=== PATIENT | female | born 1965 | race Caucasian/White ===

== ENCOUNTER 2023-03-07 08:02 | Outpatient (CLI) | payer OTHER, SELFPAY ==
--- NOTE | ~2023-03-07 | MM_ITS ---
EXAMINATION: MM screening ramón BI w nasima HISTORY: Screening mammogram TECHNIQUE: Craniocaudal and mediolateral oblique 3-D tomosynthesis images were obtained and synthetic 2-D images were generated. CAD analysis was submitted and interpreted. COMPARISON: 01/21/2016 BREAST PARENCHYMAL COMPOSITION: There are scattered areas of fibroglandular density. FINDINGS: No suspicious mass, calcification, or architectural distortion are identified in either kuldip ast to suggest malignancy. There has been no suspicious interval change. IMPRESSION: 1. No mammographic evidence of malignancy. 2. Recommend routine screening mammography in one year. BI-RADS Category 1: Negative Reviewed, dictated and finalized at location A.
== END 2023-03-07 08:03 | disposition home or self-care (01) ==
LOC: ANHIMG 08:06
PROVIDERS: PCP Family Medicine; Visit Provider Nurse Practitioner Family
DX: Z12.31 Encounter for screening mammogram for malignant neoplasm of breast (principal)
CPT/HCPCS: 77063; 77067

== ENCOUNTER 2024-07-13 15:31 | Outpatient (CLI) | payer OTHER, SELFPAY ==
--- NOTE | ~2024-07-13 | MM_ITS ---
EXAMINATION: MM screening ramón BI w nas[facility] HISTORY: Screening mammogram TECHNIQUE: Craniocaudal and mediolateral oblique 3-D tomosynthesis images were obtained and synthetic 2-D images were generated. CAD analysis was submitted and interpreted. COMPARISON: 03/07/2023, 01/21/2016 BREAST PARENCHYMAL COMPOSITION:Not Dense. There are scattered areas of fibroglandular density. FINDINGS: No suspicious mass, calcification, or architectural distortion are identified in either kuldip ast to suggest malignancy. There has been no suspicious interval change. IMPRESSION: No mammographic evidence of malignancy. Recommend routine screening mammography in one year. BI-RADS Category 1: Negative Reviewed, dictated and finalized at location .
--- OUTSIDE RECORDS SUMMARY | 2024-07-13 15:36 | XMS_ITS | Clinical Summary ---
Author Organization [facility] Address [address] [place] [id number] Care Team Providers Care Hat Presser Name Role Phone None, Provider MD Primary Care Provider Unavaila ble Social History Tobacco Use Types Packs/Day Years Used Date Smoking Tobacco: Never Assessed Comments Unknown Sex and Gender Information Value Date Recorded Sex Assigned at Not on file Legal Sex Female 8:21 PM CDT Gender Identity Not on file Sexual Orientation Not on file Plan of Treatment Health Maintenance Due Date Last Done Comments Cervical Cancer Screening Pa p Smear (Age 30 to 64) Every 3 Years 1966 Colorectal Cancer Screening Colonoscopy (10 Years) 1966 Annual Physical 1969 Hepatitis C 1984 DTaP, Tdap and Td Vaccines ( 1 - Tdap) 1985 Hepatitis B Vaccines (1 of 3 - 19+ 3-dose series) 1985 Cervical Cancer Screening Pa p with HPV Testing (Age 30 to 64) Every 5 Years 1996 Cervical Cancer Screening wi th HPV 1996 Mammogram Screening 2006 Zoster Vaccines (1 of 2) 2016 COVID-19 Vaccine ( - 2023-2 5 season) 2024 09/29/2020, 09/01/2020 Influenza Adult (#1) 2024 Meningococcal B Vaccine Aged Out No l onger eligible based on patient's age to complete this topic Meningococcal Vaccine Aged Out No dena muriel eligible based on patient's age to complete this topic Pneumococcal Vaccine: Pediatrics (0 to 5 Years) and At-Risk Patients (6 to 64 Years) Aged Out No longer eligible b ased on patient's age to complete this topic RSV Immunizations Under 20 Months Aged Out No longer eligible b ased on patient's age to complete this topic Care Teams Hat Presser Relationship Specialty Start Date End Date None, Provider, PCP - General 02/25/20
--- OUTSIDE RECORDS SUMMARY | 2024-07-13 15:36 | XMS_ITS | Continuity of Care Document ---
Author Organization [facility] Address [id number] [place] [address] [place] [address] Phone Care Team Providers Care Machine Molder Name Role Phone Charlie Carter MD Unavailable Unavailable Advance Directives Directive Yes / No Effective Date File Name No Information Encounters Encounter Description Practice Location Reason(s) For Visit Diagnoses Date Provider Providers Copied on Encounter [facility], [address], [place], [place], [id number], [place] tel:[phone] [facility] No Information Mar-0 7-200 6 Emma Guerra. [address] [facility] [address], [place], [place], [id number], [place]. tel:[phone] Referring Provider: Bryant Noel MD, [address] [place], [address]. tel:[phone] Family History Family Member Type Diagnosis Age At Onset No Information Payers Payer name Insurance type Covered constitution party ID Authoriza tion(s) No Information Social History Type Description Quantity Date Captured Comments Sex Female Smoking Status No Information Chief Complaint And Reason For Visit No Information Reason For Referral Reason For Referral No Information History Of Present Illness Encounter Date Complaint History Of Prese nt Illness No Information Functional Status Date Functional Assessmen t No Information Instructions Date Instruction Additional Infor mation No Information Assessments Type Assessment Date No Information Patient Care Teams Name Effective Dates (start - stop) Status Members No Information
--- OUTSIDE RECORDS SUMMARY | 2024-07-13 15:36 | XMS_ITS | Clinical Summary ---
Author Organization [address] Address [address] [place] [id number] Care Team Providers Care [employer] Central Office Installer Name Role Phone Raúl Her MD Primary Care Provider [phone] Raghavendra Molina MD Unavailable [phone] Allergies No known active allergies Medications multivitamin with iron tablet Take 1 tablet by mouth once a week Active RED BEET ROOT-SOUR LEON EXT ORAL Take by mouth Active Active Problems Problem Noted Date Diagnosed Date Elevated blood pressure read ing without diagnosis of hypertension 09/12/2023 Class 3 severe obesity due t o excess calories without serious comorbidity with body mass index (BMI) of 40.0 to 44.9 in adult 03/23/2023 Assessment & Plan (03/14/2024 4:14 PM AIR CONDITIONING SUPERVISOR): BMI Follow-up includes: nutrition counseling, exercise counseling, and education provided. Assessment & Plan (09/12/2023 2:10 PM CDT): BMI Follow-up includes: nutrition counseling, exercise counseling, and education provided. Assessment & Plan (03/23/2023 12:54 PM AIR CONDITIONING SUPERVISOR): BMI Follow-up includes: nutrition counseling, exercise counseling, and education provided. Prediabetes 02/09/2023 Assessment & Plan (02/12/2023 1:48 PM CDT): Advocated to make lifestyle modifications such as: a low carbohydrate diet, daily routine exercise (at least 30 mins a day, 5 days a week of light to moderate cardio) and weight reduction. Establishing care with new doctor, encounter for 02/09/2023 Assessment & Plan (02/09/2023 9:51 AM CDT): A(n) initial visit to establish care has been performed today. Nicole Rivas is not up to date on screening tests. She is in need of Cholesterol screening- mammogram is scheduled for 03/07. She is not up to date on needed preventative vaccinations; She is in need of Tdap/Td and Zoster. We discussed healthy lifestyle habits, educational material has been given. Medications reviewed, changes documented as per the medical record and discussed with patient along with risks vs benefits. Return in 6 months Encounters Date Type Department Care Team Description 06/06/2024 10:17 AM AIR CONDITIONING SUPERVISOR - 06/06/2024 11:59 PM AIR CONDITIONING SUPERVISOR Hospital Encounter [address] [id number] Chronic bilateral low back pain with bilateral sciatica Discharge Disposition: Discharge to home or self care 05/08/2024 Telephone [facility] Primary Care at [address] [phone] Shahla Lomeli MA 05/04/2024 2:26 PM AIR CONDITIONING SUPERVISOR - 05/04/2024 11:59 PM AIR CONDITIONING SUPERVISOR Hospital Encounter [address] [id number] Prediabetes; Elevated blood pressure reading without diagnosis of hypertension; Class 3 severe obesity due to excess calories without serious comorbidity with body mass index (BMI) of 40.0 to 44.9 in adult (HCC) Discharge Disposition: Discharge to home or self care 05/04/2024 11:45 AM AIR CONDITIONING SUPERVISOR Lab [facility] Outpatient Lab at [address] [phone] Establishing care with new doctor, encounter for (Primary Dx); Prediabetes from Last 3 Months Immunizations Immunization Administration Dates Next Due Influenza, Unspecified 02/09/2023(Deferr ed: Patient Refused),08/04/2022(Deferred: Patient Refused),08/04/2021(Deferred: Patient Refused) Tdap 02/09/2023 Surgical History Surgery Date Site/Laterality Comments APPENDECTOMY 1975 Medical History Medical History Date Comments Frequent UTI Family History Medical History Relation Name Comments Diabetes Brother Manuel Diabetes Father Ed Colon cancer Maternal Grandmother Diabetes Mother Mary Hypertension Mother Mary Breast cancer Paternal Grandmother Marjorie Relation Name Status Comments Brother Manuel Father Ed Maternal Grandmother Mother Mary Paternal Grandmother Marjorie Social History Tobacco Use Types Packs/Day Years Used Date Smoking Tobacco: Never Passive Smoke Exposure: Never Smokeless Tobacco: Never Humiliation, Afraid, Rape, and Kick questionnair e Answer Date Recorded Within the last year, have y ou been afraid of your partner or ex-partner? No 01/26/2023 Emotionally Abused Not on file 01/26/2023 Within the last year, have y ou been kicked, hit, slapped, or otherwise physically hurt by your partner or ex-partner? No 01/26/2023 Within the last year, have y ou been raped or forced to have any kind of sexual activity by your partner or ex-partner? No 01/26/2023 AUDIT-C Answer Date Recorded Q1: How often do you have a drink containing alc ohol? Monthly or less 02/09/2023 Q2: How many drinks containi ng alcohol do you have on a typical day when you are drinking? 1 or 2 02/09/2023 Q3: How often do you have si x or more drinks on one occasion? Never 02/09/2023 PHQ-2 Answer Date Recorded PHQ-2 Total Score (If total score is 3 or more points, staff should administer the PHQ-9) 0 03/14/2024 Comments No Sex and Gender Information Value Date Recorded Sex Assigned at Not on file Legal Sex Female 8:33 PM AIR CONDITIONING SUPERVISOR Gender Identity Female 08/02/2022 8:04 PM CDT Sexual Orientation Not on file Obstetrics History Para Term AB IAB SAB Ectopic Multiple Livin g Live Births 3 2 Date Outcome GA Total Labor Labor/2nd/3rd Weight Sex Type Anes PTL Estrella A1 A5 Name Clin Para Vaginal Para Vaginal Last Filed Vital Signs Vital Sign Reading Time Taken Comments Blood Pressure 124/78 03/14/2024 3:52 PM AIR CONDITIONING SUPERVISOR Pulse 61 03/14/2024 3:52 PM AIR CONDITIONING SUPERVISOR Temperature 36.7 C (98.1 F) 03/14/2024 3:52 PM AIR CONDITIONING SUPERVISOR Respiratory Rate 22 12/05/2023 12:2 3 PM CDT Oxygen Saturation 98% 03/14/2024 3:52 PM AIR CONDITIONING SUPERVISOR Inhaled Oxygen Concentration - - Weight 109.5 kg (241 lb 4.8 oz) 03/14/2024 3:52 PM AIR CONDITIONING SUPERVISOR Height 162.6 cm (5' 4 ) 03/14/2024 3:52 PM AIR CONDITIONING SUPERVISOR Body Mass Index 41.42 03/14/2024 3:52 PM AIR CONDITIONING SUPERVISOR Plan of Treatment Health Maintenance Due Date Last Done Comments Hepatitis C Screening 1966 Hepatitis B Screening 1984 Covid-19 Vaccine ( season) 2024 09/29/2020, 09/01/2020 Breast Cancer Screening-Mammogram 03/07/2024 03/07/2023 Zoster Vaccine (1 of 2) 09/11/2024 Post poned from 2016 (Insurance / Financial) Cervical Cancer Screening 02/09/2025 02/10/2024 Regular Well Visit/Exam 18-64 02/09/2025 02/10/2024, 01/26/2023, 08/04/2022 Depression Screening 03/14/2025 03/14/2024, 02/10/2024, 09/12/2023, Additional history exists Colon Cancer Screening-Colonoscopy 03/07/2028 03/07/2018, 03/07/2018 DTaP/Tdap/Td Vaccine (2 - Td or Tdap) 02/09/2033 02/09/2023 Influenza Vaccine Discontinued Pneumococcal vaccine <65 Aged Out No longer eligible based on patient's age to complete this topic Procedures Procedure Name Priority Date/Time Associated Diagnosis Comments MRI LUMBAR SPINE WO CONTRAST Schedule Routine, Read Routine (OP Routine) 06/06/2024 11:06 AM AIR CONDITIONING SUPERVISOR Chronic bilateral low back pain with bilateral sciatica EGFR Routine 05/04/2024 11:45 AM AIR CONDITIONING SUPERVISOR Prediabetes Elevated blood pressure reading without diagnosis of hypertension DIFFERENTIAL AUTO Routine 05/04/2024 11: 45 AM AIR CONDITIONING SUPERVISOR Prediabetes Elevated blood pressure reading without diagnosis of hypertension HEMOGLOBIN A1C Routine 05/04/2024 11:45 AM AIR CONDITIONING SUPERVISOR Prediabetes VITAMIN D 25 HYDROXY Routine 05/04/2024 11:45 AM AIR CONDITIONING SUPERVISOR Class 3 severe obesity due to excess calories without serious comorbidity with body mass index (BMI) of 40.0 to 44.9 in adult ([facility]) THYROID FUNCTION CASCADE Routine 05/04/2024 11:45 AM AIR CONDITIONING SUPERVISOR Class 3 severe obesity due to excess calories without serious comorbidity with body mass index (BMI) of 40.0 to 44.9 in adult ([facility]) Elevated blood pressure reading without diagnosis of hypertension LIPID PANEL Routine 05/04/2024 11:45 AM AIR CONDITIONING SUPERVISOR Class 3 severe obesity due to excess calories without serious comorbidity with body mass index (BMI) of 40.0 to 44.9 in adult ([facility]) COMPREHENSIVE METABOLIC PANEL Routine 05/04/2024 11:45 AM AIR CONDITIONING SUPERVISOR Prediabetes Elevated blood pressure reading without diagnosis of hypertension CBC WITH AUTO DIFFERENTIAL Routine 05/04/2024 11:45 AM AIR CONDITIONING SUPERVISOR Prediabetes Elevated blood pressure reading without diagnosis of hypertension PAP AND HPV, REFLEX TO HPV GENOTYPES Routine 02/10/2024 8:48 AM CDT Well woman exam MAMMOGRAPHY Routine 03/07/2023 COLONOSCOPY Routine 03/07/2018 from Last 3 Months or Most Recently Relevant to Health Maintenance Results * MRI Lumbar Spine WO Contrast (06/06/2024 11:06 AM AIR CONDITIONING SUPERVISOR) Anatomical Region Laterality Modality Spine N/A Magnetic Resonan ce 06/06/2024 11:1 7 AM AIR CONDITIONING SUPERVISOR Narrative 06/06/2024 11:22 AM AIR CONDITIONING SUPERVISOR EXAM DESCRIPTION: MRI LUMBAR SPINE WO CONTRAST REASON FOR STUDY: Chronic nontraumatic right leg pain and tightness with intermittent numbness for years. No provided lumbar spine/back complaints. No provided history of inciting and/or aggravating events. No provided past medical history. No lumbar spine surgery. TECHNIQUE: Sagittal and axial imaging of the lumbar spine includes T1, T2, STIR sequences. Images saved to PACS. COMPARISON: Lumbar spine radiograph 11/01/2023. FINDINGS: SEGMENTATION: No lumbosacral transitional anatomy. The lowest fully formed intervertebral disc level is labeled L5-S1. ALIGNMENT: Minimal retrolisthesis L3 on L4 in advance of grade 1 anterolisthesis L4 on L5. VERTEBRAE: No MR evidence of acute-subacute fracture. Vertebral body heights maintained. Spondylosis. Scattered tiny hemangiomas and/or patchy fatty marrow replacement about the osseous architecture. DISC HEIGHT: Multilevel variable intervertebral disc desiccation and loss of intervertebral disc height of the lower thoracic through lumbar spine. HARDWARE: None in the lumbar spine. CORD/CAUDA: Normal in size and signal intensity with conus medullaris termination at L1-2. LOWER THORACIC: Incompletely imaged. No stenosis demonstrated. INDIVIDUAL DISC LEVELS: L1-2: No diffuse disc bulge or focal herniation. No spinal canal stenosis. No neural foraminal stenosis. L2-3: Minimal annular disc bulge. Bilateral hypertrophic facet arthropathy. No spinal canal stenosis. No neural foraminal stenosis. L3-4: Slightly overhanging posterior cortical margin with annular disc bulge. Bilateral hypertrophic facet arthropathy, noting fluid in the facet joints suggestive of facet synovitis. Compromise of the bilateral lateral recesses, noting combination of disc and arthropathic facet variable slight contact with descending bilateral L4 nerve roots. No spinal canal stenosis. Mild bilateral neural foraminal stenosis, noting variable slight disc contact with exiting bilateral L3 nerve roots. L4-5: Slight uncovering of the intervertebral disc with annular disc bulge. Marked bilateral hypertrophic facet arthropathy, noting fluid in the facet joints suggestive of facet synovitis. Ligamentum flavum thickening. Compromise of the [id number]-[id number]-gpav-right lateral recesses, noting combination of disc and arthropathic facet variable contact with the descending bilateral L5 nerve roots. Mild-moderate spinal canal stenosis. Severe left and moderate right neural foraminal stenosis, noting combination of inferior pedicular surface, disc, and arthropathic facet variable contact with exiting bilateral L4 nerve roots. L5-S1: Posterior predominant annular disc bulge. Bilateral hypertrophic facet arthropathy. No spinal canal stenosis. Mild bilateral neural foraminal stenosis, noting combination of inferior pedicular surface and posterior cortical margin/disc variable contact with exiting bilateral L5 nerve roots. SACRUM: Visualized upper sacrum intact. VISUALIZED UPPER ABDOMEN: No significant abnormality. OTHER: No other significant findings. IMPRESSION: Constellation of spondylolisthesis, spondylosis, and degenerative disc disease of the lumbar spine as detailed level by level above, maximal at L4-5. THIS IS AN ELECTRONICALLY VERIFIED FINAL REPORT 06/06/2024 11:22 AM - Electronically signed by Roel Rodas M.D. PARIS: PARIS Report ID: [id number] Reading Location: [place] [address] Procedure Note Roel Rodas MD - 06/06/2024 EXAM DESCRIPTION: MRI LUMBAR SPINE WO CONTRAST REASON FOR STUDY: Chronic nontraumatic right leg pain and tightness with intermittent numbness for years. No provided lumbar spine/backcomplaints. No provided history of inciting and/or aggravating events. No providedpast medical history. No lumbar spine surgery. TECHNIQUE: Sagittal and axial imaging of the lumbar spine includes T1,T2, STIR sequences. Images saved to PACS. COMPARISON: Lumbar spine radiograph 11/01/2023. FINDINGS: SEGMENTATION: No lumbosacral transitional anatomy. The lowest fullyformed intervertebral disc level is labeled L5-S1. ALIGNMENT: Minimal retrolisthesis L3 on L4 in advance of grade 1 anterolisthesis L4 on L5. VERTEBRAE: No MR evidence of acute-subacute fracture. Vertebral body heights maintained. Spondylosis. Scattered tiny hemangiomas and/orpatchy fatty marrow replacement about the osseous architecture. DISC HEIGHT: Multilevel variable intervertebral disc desiccation andloss of intervertebral disc height of the lower thoracic through lumbar spine. HARDWARE: None in the lumbar spine. CORD/CAUDA: Normal in size and signal intensity with conus medullaris termination at L1-2. LOWER THORACIC: Incompletely imaged. No stenosis demonstrated. INDIVIDUAL DISC LEVELS: L1-2: No diffuse disc bulge or focal herniation. No spinal canalstenosis. No neural foraminal stenosis. L2-3: Minimal annular disc bulge. Bilateral hypertrophic facetarthropathy. No spinal canal stenosis. No neural foraminal stenosis. L3-4: Slightly overhanging posterior cortical margin with annular disc bulge. Bilateral hypertrophic facet arthropathy, noting fluid in thefacet joints suggestive of facet synovitis. Compromise of the bilateral lateral recesses, noting combination of disc and arthropathic facet variableslight contact with descending bilateral L4 nerve roots. No spinal canalstenosis. Mild bilateral neural foraminal stenosis, noting variable slight disccontact with exiting bilateral L3 nerve roots. L4-5: Slight uncovering of the intervertebral disc with annular discbulge. Marked bilateral hypertrophic facet arthropathy, noting fluid in the facet joints suggestive of facet synovitis. Ligamentum flavum thickening. Compromise of the rdqp-qymsmyc-oxev-right lateral recesses, notingcombination of disc and arthropathic facet variable contact with the descendingbilateral L5 nerve roots. Mild-moderate spinal canal stenosis. Severe left and moderate right neural foraminal stenosis, noting combination of inferior pedicular surface, disc, and arthropathic facet variable contact withexiting bilateral L4 nerve roots. L5-S1: Posterior predominant annular disc bulge. Bilateral hypertrophic facet arthropathy. No spinal canal stenosis. Mild bilateral neuralforaminal stenosis, noting combination of inferior pedicular surface and posterior cortical margin/disc variable contact with exiting bilateral L5 nerveroots. SACRUM: Visualized upper sacrum intact. VISUALIZED UPPER ABDOMEN: No significant abnormality. OTHER: No other significant findings. IMPRESSION: Constellation of spondylolisthesis, spondylosis, and degenerative disc disease of the lumbar spine as detailed level by level above, maximal atL4-5. THIS IS AN ELECTRONICALLY VERIFIED FINAL REPORT 06/06/2024 11:22 AM - Electronically signed by Roel Rodas M.D. PARIS: PARIS Report ID: [id number] Reading Location: [place] [address] us Raúl Her MD IMG MRI PROCEDURES Final Re sult * eGFR (05/04/2024 11:45 AM AIR CONDITIONING SUPERVISOR) eGFR 83 >=60 mL/min/1. 73 m2 Comment: Interpretive Data Reference Interval Normal >/= 90 mL/min/1.73m2 Mildly decreased* 60 - 89 mL/min/1.73m2 Mildly to moderately decreased 45 - 59 mL/min/1.73m2 Moderately to severely decreased 30 - 44 mL/min/1.73m2 Severely decreased 15 - 29 mL/min/1.73m2 Kidney Failure < 15 mL/min/1.73m2 *Relative to young adult level Estimated glomerular filtration rate is determined by the 2020 CKD-EPI equation recommended by the National Kidney Foundation (A Unifying Approach to GFR Estimation: Recommendations of the NKF-ASK Task Force on Reassessing the Inclusion of Race in Diagnosing Kidney Disease, JASN 2020). The CKD-EPI equation should not be used for patients with unstable renal function and has not been validated in children and those over 70. Current interpretive data was last reviewed 2021. Blood 05/04/2024 11:4 5 AM AIR CONDITIONING SUPERVISOR 05/04/2024 7:29 PM AIR CONDITIONING SUPERVISOR us Raúl Her MD LAB BLOOD ORDERABLES Final Result [facility] [id number] [place] [address] * Differential, auto (05/04/2024 11:45 AM AIR CONDITIONING SUPERVISOR) Neutrophil abs 4.9 1.5 - 6.5 K/cumm Imm gran abs 0.0 0.0 - 0.1 K/cumm [facility] Lymphocyte abs 1.8 0.8 - 3.3 K/cumm [facility] Monocyte abs 0.4 0.2 - 0.8 K/cumm [facility] Eosinophil abs 0.3 0.0 - 0.5 K/cumm [facility] Basophil abs 0.0 0.0 - 0.1 K/cumm [facility] Neutrophil pct 66.2 % [facility] Comment: Interpretive Data Percent cell count reference ranges are not reported, since discordance with absolute values may lead to misinterpretation of CBC data. Current Interpretive Data was last revised on 2017. Imm gran pct 0.3 % [facility] Comment: Interpretive Data Percent cell count reference ranges are not reported, since discordance with absolute values may lead to misinterpretation of CBC data. Current Interpretive Data was last revised on 2017. Lymphocyte pct 23.8 % [facility] Comment: Interpretive Data Percent cell count reference ranges are not reported, since discordance with absolute values may lead to misinterpretation of CBC data. Current Interpretive Data was last revised on 2017. Monocyte pct 5.3 % [facility] Comment: Interpretive Data Percent cell count reference ranges are not reported, since discordance with absolute values may lead to misinterpretation of CBC data. Current Interpretive Data was last revised on 2017. Eosinophil pct 4.1 % [facility] Comment: Interpretive Data Percent cell count reference ranges are not reported, since discordance with absolute values may lead to misinterpretation of CBC data. Current Interpretive Data was last revised on 2017. Basophil pct 0.3 % [facility] Comment: Interpretive Data Percent cell count reference ranges are not reported, since discordance with absolute values may lead to misinterpretation of CBC data. Current Interpretive Data was last revised on 2017. Blood 05/04/2024 11:4 5 AM AIR CONDITIONING SUPERVISOR 05/04/2024 6:56 PM AIR CONDITIONING SUPERVISOR Raúl Her MD LAB BLOOD ORDERABLES Final Result Performing Organization Address [facility] Co de Phone Number NELSY [phone] [place] [address] * Thyroid Function [place] (05/04/2024 11:45 AM AIR CONDITIONING SUPERVISOR) Pathologist [facility] [place] TSH 2.47 0.30 - 4.20 mcIUnit/mL Blood 05/04/2024 11:4 5 AM AIR CONDITIONING SUPERVISOR 05/04/2024 6:56 PM AIR CONDITIONING SUPERVISOR Raúl Her MD LAB BLOOD ORDERABLES Final Result Performing Organization Address [facility] Co de Phone Number NELSY [phone] [place] [address] * (ABNORMAL) CBC with auto differential (05/04/2024 11:45 AM AIR CONDITIONING SUPERVISOR) Pathologist [facility] [place] WBC 7.4 3.8 - 9.9 K/cumm Hgb 12.9 11.9 - 15.5 g/dL [facility] Hct 42.3 35.6 - 45.5 % [facility] Plt 257 150 - 400 K/cumm [facility] MPV 11.8 9.1 - 12.3 fL [facility] RBC 4.65 3.90 - 5.20 M/cumm [facility] MCV 91.0 81.3 - 96.4 fL [facility] MCH 27.7 27.1 - 33.3 pg [facility] MCHC 30.5(L) 32.3 - 35.7 g/dL [facility] RDW CV 14.2 11.1 - 14.9 % [facility] RDW SD 47.2 35.7 - 48.1 fL [facility] NRBC abs 0.00 0.00 - 0.01 K/cumm [facility] Blood 05/04/2024 11:4 5 AM AIR CONDITIONING SUPERVISOR 05/04/2024 6:56 PM AIR CONDITIONING SUPERVISOR Raúl Her MD LAB BLOOD ORDERABLES Final Result Performing Organization Address [facility] Co de Phone Number [facility] [id number] [address] [facility] [place] [address] * Vitamin D 25 hydroxy (05/04/2024 11:45 AM AIR CONDITIONING SUPERVISOR) Vitamin D 25-OH 31 30 - 80 ng/mL Blood 05/04/2024 11:4 5 AM AIR CONDITIONING SUPERVISOR 05/04/2024 6:56 PM AIR CONDITIONING SUPERVISOR Raúl Her MD LAB BLOOD ORDERABLES Final Result Performing Organization Address [facility] de Phone Number [facility] [id number] [place] [address] * (ABNORMAL) Hemoglobin A1c (05/04/2024 11:45 AM AIR CONDITIONING SUPERVISOR) Hgb A1C 5.7(H) 4.0 - 5.6 % Estimated Average Glucose 117 mg/dL [facility] Comment: The ADA recommends reporting an estimated Average Glucose (eAG) with all Hemoglobin A1c results using the equation derived from a study of 507 normal and diabetic adults. Minority populations were underrepresented and children were not included. (Diabetes Care 31:6897-0363, 2008). The eAG is not equivalent to a fasting glucose. Blood 05/04/2024 11:4 5 AM AIR CONDITIONING SUPERVISOR 05/04/2024 6:56 PM AIR CONDITIONING SUPERVISOR us Raúl Her MD LAB BLOOD ORDERABLES Final Result [facility] [address] [address] [place] [address] * Lipid panel (05/04/2024 11:45 AM AIR CONDITIONING SUPERVISOR) Cholesterol 158 30 - 199 mg/dL Comment: Interpretive Data Ages < or = 19 years Acceptable: <170 mg/dL Borderline high: 170-199 mg/dL High: >or= 200 mg/dL Ages > or = 20 years Desirable: <200 mg/dL Borderline high: 200-239 mg/dL High: >or= 240 mg/dL Literature References: 1. Expert Panel on Integrated Guidelines for Cardiovascular Health and Risk Reduction in Children and Adolescents. Pediatrics 2011;128:S213 2. NCEP Expert Panel. Circulation 2004;110:227 Current Interpretive Data was last revised on 2017. Triglycerides 64 <=149 mg/dL [facility] Comment: Interpretive Data Ages < or = 9 years Acceptable: <75 mg/dL Borderline high: 75-99 mg/dL High: >or= 100 mg/dL Ages 10 to 20 years Acceptable: <90 mg/dL Borderline high: 90-129 mg/dL High: >or= 130 mg/dL Ages > or = 20 years Desirable: <150 mg/dL Borderline high: 150-199 mg/dL High: 200-499 mg/dL Very high: >or= 499 mg/dL Literature References: 1. Expert Panel on Integrated Guidelines for Cardiovascular Health and Risk Reduction in Children and Adolescents. Pediatrics 2011;128:S213 2. NCEP Expert Panel. Circulation 2004;110:227 Current Interpretive Data was last revised on 2017. HDL 67 >=40 mg/dL [facility] Comment: Interpretive Data Ages < or = 19 years Acceptable: >45 mg/dL Borderline low: 40-45 mg/dL Low: <40 mg/dL Ages > or = 20 years Desirable: >or= 60 mg/dL Low: <40 mg/dL Literature References: 1. Expert Panel on Integrated Guidelines for Cardiovascular Health and Risk Reduction in Children and Adolescents. Pediatrics 2011;128:S213 2. NCEP Expert Panel. Circulation 2004;110:227 Current Interpretive Data was last revised on 2017. LDL, calculated 78 <=129 mg/dL [facility] Comment: Interpretive Data Ages < or = 19 years Acceptable: <110 mg/dL Borderline high: 110-129 mg/dL High: >or= 130 mg/dL Ages > or = 20 years Optimal: <100 mg/dL Near optimal: 100-129 mg/dL Borderline high: 130-159 mg/dL High: >160 mg/dL Calculated using the Rafael LDL-C estimating equation. This equation was implemented on 2023. Prior to this date LDL-C was estimated using the Friedewald equation. Literature References: 1. Expert Panel on Integrated Guidelines for Cardiovascular Health and Risk Reduction in Children and Adolescents. Pediatrics 2011;128:S213 2. NCEP Expert Panel. Circulation 2004;110:227 3. Rafael Suero et al. CLARA Cardiol. 2020 September 06;5(5):540-548. doi: 10.1001/[email or web address].2020.0013 Current Interpretive Data was last revised on 2023. Non-HDL Cholesterol 91 mg/dL NELSY SAINI Comment: Interpretive Data Ages < or = 19 years Acceptable: <120 mg/dL Borderline high: 120-144 mg/dL High: >145 mg/dL Ages > or = 20 years When triglycerides are >200 mg/dL, Non-HDL cholesterol is a secondary target of therapy with treatment goals that are 30 mg/dL greater than the LDL cholesterol target. Literature References: 1. Expert Panel on Integrated Guidelines for Cardiovascular Health and Risk Reduction in Children and Adolescents. Pediatrics 2011;128:S213 2. NCEP Expert Panel. Circulation 2004;110:227 Current Interpretive Data was last revised on 2017. Chol/HDL ratio 2 NELSY SAINI Blood 05/04/2024 11:4 5 AM AIR CONDITIONING SUPERVISOR 05/04/2024 6:56 PM AIR CONDITIONING SUPERVISOR us Raúl Her MD LAB BLOOD ORDERABLES Final Result NELSY SAINI [address] [place] [address] * Comprehensive metabolic panel (05/04/2024 11:45 AM AIR CONDITIONING SUPERVISOR) Sodium 141 135 - 145 mmol/L Potassium, pl 4.8 3.3 - 4.9 mmol/L [facility] Chloride 106 97 - 110 mmol/L [facility] CO2 25 22 - 32 mmol/L [facility] Anion gap 10 2 - 15 mmol/L [facility] BUN 17 6 - 25 mg/dL [facility] Creatinine 0.82 0.60 - 1.10 mg/dL [facility] Glucose 93 70 - 199 mg/dL [facility] Comment: Interpretive Data Fasting glucose >/= 126 mg/dl is diagnostic for diabetes. Fasting is defined as no caloric intake for at least 8 hours. Fasting glucose between 100 mg/dl to 125 mg/dl is diagnostic of prediabetes. In a patient with classic symptoms of hyperglycemia or hyperglycemic crisis, a random glucose >/= 200 mg/dl is diagnostic for diabetes. In the absence of unequivocal hyperglycemia, results should be confirmed by repeat testing. The classification and Diagnosis of Diabetes Diabetes Care 2021; 46: S19-S40. Current interpretive data was last revised 2022. Calcium 9.7 8.5 - 10.3 mg/dL [facility] Bilirubin, total 0.3 0.1 - 1.2 mg/dL [facility] Protein, pl 7.6 6.5 - 8.5 g/dL [facility] Albumin 4.2 3.5 - 5.0 g/dL [facility] Alk phos 83 40 - 130 Units/L [facility] ALT 27 7 - 45 Units/L [facility] AST 23 10 - 45 Units/L [facility] Blood 05/04/2024 11:4 5 AM AIR CONDITIONING SUPERVISOR 05/04/2024 6:56 PM AIR CONDITIONING SUPERVISOR Raúl Her MD LAB BLOOD ORDERABLES Final Result NELSY SAINI [address] [place] [address] * Pap and HPV, reflex to HPV Genotypes (02/10/2024 8:48 AM CDT) CLINICAL INFORMATION: [facility] Comment:SCREENING LMP [facility] Comment:UNKNOWN Previous Pap [facility] Comment:NONE GIVEN Prev. Bx [facility] Comment:NONE GIVEN SOURCE: [facility] Comment:Cervix, Endocervix Pap, specimen adequacy [facility] Comment:SATISFACTORY FOR ZAINAB LUATION HPV interp [facility] Comment: Cytology Results: Negative for intraepithelial lesion or malignancy. Atrophic pattern; predominantly parabasal cells COMMENTS [facility] Comment: This Pap test has been evaluated with computer assisted technology. [facility] Comment: KMS, CT(ASCP) CT Screening location: [place] [address] [address] [address] Comment [facility] Comment: EXPLANATORY NOTE: The Pap is a screening test for cervical cancer. It is not a diagnostic test and is subject to false negative and false positive results. It is most reliable when a satisfactory sample, regularly obtained, is submitted with relevant clinical findings and history, and when the Pap result is evaluated along with historic and current clinical information. Human papillomavirus DNA, High Risk E6/E7 Not Detected NOT DETECTED [facility] Comment: Not Detected High Risk HPV types (16,18,31,33,35,39,45,51,52, 56,58,59,66,68) were not detected. Other HPV types which cause anogenital lesions may be present. The significance of the other types of HPV in malignant processes has not been established. Methodology: Real Time PCR Thin prep-Endocervica l 02/10/2024 8:48 AM CDT 02/11/2024 2:17 AM CDT us Marielena Barone CAMPGROUND ATTENDANT LAB CYTOLOGY ORDERABLES Fin al Result [place] [address] [address] [place] [address] [place] [address] [place] [address] * HM MAMMOGRAPHY (03/07/2023) us Historical Provider HEALTH MAINTENANCE Final Result * HM COLONOSCOPY (03/07/2018) us Historical Provider HEALTH MAINTENANCE Final Result from Last 3 Months or Most Recently Relevant to Health Maintenance Insurance [facility] CHOICE PLUS [facility] Care Teams Fiber [employer] Central Office Installer Relationship Specialty Start Date End Date Raúl Her MD [address] [facility] [address] [place] [address] PCP - General Family Medicine 08/04/22 Raghavendra Molina MD [address] [place] [address] Referring Physician Gastroenterology 02/12/23
--- OUTSIDE RECORDS SUMMARY | 2024-07-13 15:36 | XMS_ITS | Referral Summary ---
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 Name Role Phone Arden, Raúl Sevilla MD Primary Care Provider [phone] Raghavendra Molina MD Unavailable [phone] Encounters Date Type Department Care Team Description 06/06/2024 10:17 AM GAMEWELL OPERATOR - 06/06/2024 11:59 PM GAMEWELL OPERATOR Hospital Encounter [address] [address] Chronic bilateral low back pain with bilateral sciatica Discharge Disposition: Discharge to home or self care 05/08/2024 Telephone [facility] Primary Care at [address] [address] Shahla Lomeli MA 05/04/2024 2:26 PM GAMEWELL OPERATOR - 05/04/2024 11:59 PM GAMEWELL OPERATOR Hospital Encounter [address] [address] Prediabetes; Elevated blood pressure reading without diagnosis of hypertension; Class 3 severe obesity due to excess calories without serious comorbidity with body mass index (BMI) of 40.0 to 44.9 in adult (HCC) Discharge Disposition: Discharge to home or self care 05/04/2024 11:45 AM GAMEWELL OPERATOR Lab [facility] Outpatient Lab at [address] [address] Establishing care with new doctor, encounter for (Primary Dx); Prediabetes from Last 3 Months Allergies No known active allergies Medications multivitamin [...] 03/23/2023 Assessment & Plan (03/14/2024 4:14 PM GAMEWELL OPERATOR): BMI Follow-up includes: nutrition counseling, exercise counseling, and education provided. Assessment & Plan (09/12/2023 2:10 PM CDT): BMI Follow-up includes: nutrition counseling, exercise counseling, and education provided. Assessment & Plan (03/23/2023 12:54 PM GAMEWELL OPERATOR): BMI Follow-up includes: nutrition counseling, exercise counseling, [...] risks vs benefits. Return in 6 months Immunizations Immunization Administration Dates Next Due Influenza, Unspecified 02/09/2023(Deferr ed: Patient Refused),08/04/2022(Deferred: Patient Refused),08/04/2021(Deferred: Patient Refused) Tdap 02/09/2023 Social History Tobacco Use Types Packs/Day Years [...] on file Legal Sex Female 8:33 PM GAMEWELL OPERATOR Gender Identity Female 08/02/2022 8:04 PM CDT Sexual Orientation Not on file Last Filed Vital Signs Vital Sign Reading Time Taken Comments Blood Pressure 124/78 03/14/2024 3:52 PM GAMEWELL OPERATOR Pulse 61 03/14/2024 3:52 PM GAMEWELL OPERATOR Temperature 36.7 C (98.1 F) 03/14/2024 3:52 PM GAMEWELL OPERATOR Respiratory Rate 22 12/05/2023 12:2 3 PM CDT Oxygen Saturation 98% 03/14/2024 3:52 PM GAMEWELL OPERATOR Inhaled Oxygen Concentration - - Weight 109.5 kg (241 lb 4.8 oz) 03/14/2024 3:52 PM GAMEWELL OPERATOR Height 162.6 cm (5' 4 ) 03/14/2024 3:52 PM GAMEWELL OPERATOR Body Mass Index 41.42 03/14/2024 3:52 PM GAMEWELL OPERATOR Plan of Treatment Not on file Procedures Procedure Name Priority Date/Time Associated Diagnosis Comments MRI LUMBAR SPINE WO CONTRAST Schedule Routine, Read Routine (OP Routine) 06/06/2024 11:06 AM GAMEWELL OPERATOR Chronic bilateral low back pain with bilateral sciatica EGFR Routine 05/04/2024 11:45 AM GAMEWELL OPERATOR Prediabetes Elevated blood pressure reading without diagnosis of hypertension DIFFERENTIAL AUTO Routine 05/04/2024 11: 45 AM GAMEWELL OPERATOR Prediabetes Elevated blood pressure reading without diagnosis of hypertension HEMOGLOBIN A1C Routine 05/04/2024 11:45 AM GAMEWELL OPERATOR Prediabetes VITAMIN D 25 HYDROXY Routine 05/04/2024 11:45 AM GAMEWELL OPERATOR Class 3 severe obesity due to excess calories without serious comorbidity with body mass index (BMI) of 40.0 to 44.9 in adult (HCC) THYROID FUNCTION CASCADE Routine 05/04/2024 11:45 AM GAMEWELL OPERATOR Class 3 severe obesity due to excess calories without serious comorbidity with body mass index (BMI) of 40.0 to 44.9 in adult (HCC) Elevated blood pressure reading without diagnosis of hypertension LIPID PANEL Routine 05/04/2024 11:45 AM GAMEWELL OPERATOR Class 3 severe obesity due to excess calories without serious comorbidity with body mass index (BMI) of 40.0 to 44.9 in adult (HCC) COMPREHENSIVE METABOLIC PANEL Routine 05/04/2024 11:45 AM GAMEWELL OPERATOR Prediabetes Elevated blood pressure reading without diagnosis of hypertension CBC WITH AUTO DIFFERENTIAL Routine 05/04/2024 11:45 AM GAMEWELL OPERATOR Prediabetes Elevated blood pressure reading without diagnosis of hypertension PAP AND HPV, REFLEX TO HPV GENOTYPES Routine 02/10/2024 8:48 AM CDT Well woman exam HM MAMMOGRAPHY Routine 03/07/2023 HM COLONOSCOPY Routine 03/07/2018 from Last 3 Months or Most Recently Relevant to Health Maintenance Results * MRI Lumbar Spine WO Contrast (06/06/2024 11:06 AM GAMEWELL OPERATOR) Anatomical Region Laterality Modality Spine N/A Magnetic Resonan ce 06/06/2024 11:1 7 AM GAMEWELL OPERATOR Narrative 06/06/2024 11:22 AM GAMEWELL OPERATOR EXAM DESCRIPTION: MRI LUMBAR SPINE WO CONTRAST [...] synovitis. Ligamentum flavum thickening. Compromise of the [id number]-[id number]-right lateral recesses, noting combination of disc and [...] Roel Rodas M.D. PAR[place]: PARIS Report ID: [id number] Reading Location: [place] [address] Procedure Note Roel Rodas MD - 06/06/2024 [...] synovitis. Ligamentum flavum thickening. Compromise of the srkx-[id number]-right lateral recesses, notingcombination of disc and arthropathic [...] Roel Rodas M.D. [place]: [place]IS Report ID: [id number] Reading Location: [place] [address] us Raúl Her MD IMG MRI PROCEDURES Final Re sult * eGFR (05/04/2024 11:45 AM GAMEWELL OPERATOR) eGFR 83 >=60 mL/min/1. 73 m2 Comment: [...] reviewed 2021. Blood 05/04/2024 11:4 5 AM GAMEWELL OPERATOR 05/04/2024 7:29 PM GAMEWELL OPERATOR Raúl Her MD LAB BLOOD ORDERABLES Final Result NELSY [address] Department [place] [address] * Differential, auto (05/04/2024 11:45 AM GAMEWELL OPERATOR) Neutrophil abs 4.9 1.5 - 6.5 K/cumm Imm gran abs 0.0 0.0 - 0.1 K/cumm [facility] Lymphocyte abs 1.8 0.8 - 3.3 K/cumm [facility] Monocyte abs 0.4 0.2 - 0.8 K/cumm [facility] Eosinophil abs 0.3 0.0 - 0.5 K/cumm [facility] Basophil abs 0.0 0.0 - 0.1 K/cumm [facility] Neutrophil pct 66.2 % [facility] Comment: Interpretive Data Percent cell count reference ranges are not reported, since discordance with absolute values may lead to misinterpretation of CBC data. Current Interpretive Data was last revised on 2017. Imm gran pct 0.3 % [facility] Comment: Interpretive Data Percent cell count reference ranges are not reported, since discordance with absolute values may lead to misinterpretation of CBC data. Current Interpretive Data was last revised on 2017. Lymphocyte pct 23.8 % [facility] Comment: Interpretive Data Percent cell count reference ranges are not reported, since discordance with absolute values may lead to misinterpretation of CBC data. Current Interpretive Data was last revised on 2017. Monocyte pct 5.3 % [facility] Comment: Interpretive Data Percent cell count reference ranges are not reported, since discordance with absolute values may lead to misinterpretation of CBC data. Current Interpretive Data was last revised on 2017. Eosinophil pct 4.1 % [facility] Comment: Interpretive Data Percent cell count reference ranges are not reported, since discordance with absolute values may lead to misinterpretation of CBC data. Current Interpretive Data was last revised on 2017. Basophil pct 0.3 % [facility] Comment: Interpretive Data Percent cell count reference ranges are not reported, since discordance with absolute values may lead to misinterpretation of CBC data. Current Interpretive Data was last revised on 2017. Blood 05/04/2024 11:4 5 AM GAMEWELL OPERATOR 05/04/2024 6:56 PM GAMEWELL OPERATOR Raúl Her MD LAB BLOOD ORDERABLES Final Result Performing Organization Address [facility] Co de Phone Number [facility] [address] Department [place] [address] * Thyroid Function Alvarado (05/04/2024 11:45 AM GAMEWELL OPERATOR) TSH 2.47 0.30 - 4.20 mcIUnit/mL Blood 05/04/2024 11:4 5 AM GAMEWELL OPERATOR 05/04/2024 6:56 PM GAMEWELL OPERATOR Raúl Her MD LAB BLOOD ORDERABLES Final Result Performing Organization Address [facility] Co de Phone Number NELSY SAINI [address] [place] [place] [address] * (ABNORMAL) CBC with auto differential (05/04/2024 11:45 AM GAMEWELL OPERATOR) Pathologist [facility] WBC 7.4 3.8 - 9.9 K/cumm Hgb 12.9 11.9 - 15.5 g/dL [facility] Hct 42.3 35.6 - 45.5 % [facility] Plt 257 150 - 400 K/cumm [facility] MPV 11.8 9.1 - 12.3 fL [facility] RBC 4.65 3.90 - 5.20 M/cumm [facility] MCV 91.0 81.3 - 96.4 fL [facility] MCH 27.7 27.1 - 33.3 pg [facility] MCHC 30.5(L) 32.3 - 35.7 g/dL [facility] RDW CV 14.2 11.1 - 14.9 % [facility] RDW SD 47.2 35.7 - 48.1 fL [facility] NRBC abs 0.00 0.00 - 0.01 K/cumm [facility] Blood 05/04/2024 11:4 5 AM GAMEWELL OPERATOR 05/04/2024 6:56 PM GAMEWELL OPERATOR Raúl Her MD LAB BLOOD ORDERABLES Final Result Performing Organization Address [facility] Co de Phone Number NELSY SAINI [address] [place] [address] * Vitamin D 25 hydroxy (05/04/2024 11:45 AM GAMEWELL OPERATOR) [facility] Vitamin D 25-OH 31 30 - 80 ng/mL Blood 05/04/2024 11:4 5 AM GAMEWELL OPERATOR 05/04/2024 6:56 PM GAMEWELL OPERATOR Raúl Her MD LAB BLOOD ORDERABLES Final Result Performing Organization Address City/[facility]/ZIP Co de Phone Number NELSY SAINI [address] of [employer] [place], [place] [id number] * (ABNORMAL) Hemoglobin A1c (05/04/2024 11:45 AM GAMEWELL OPERATOR) Hgb A1C 5.7(H) 4.0 - 5.6 % Estimated Average Glucose 117 mg/dL NELSY SAINI Comment: The ADA recommends reporting an estimated Average Glucose (eAG) with all Hemoglobin A1c results using the equation derived from a study of 507 normal and diabetic adults. Minority populations were underrepresented and children were not included. (Diabetes Care 31:4883-3453, 2008). The eAG is not equivalent to a fasting glucose. Blood 05/04/2024 11:4 5 AM GAMEWELL OPERATOR 05/04/2024 6:56 PM GAMEWELL OPERATOR us Raúl Her MD LAB BLOOD ORDERABLES Final Result NLESY [address] [place] [address] * Lipid panel (05/04/2024 11:45 AM GAMEWELL OPERATOR) Cholesterol 158 30 - 199 mg/dL Comment: [...] last revised on 2017. Chol/HDL ratio 2 [facility] Blood 05/04/2024 11:4 5 AM GAMEWELL OPERATOR 05/04/2024 6:56 PM GAMEWELL OPERATOR Raúl Her MD LAB BLOOD ORDERABLES Final Result [facility] [address] [place] [address] * Comprehensive metabolic panel (05/04/2024 11:45 AM GAMEWELL OPERATOR) Sodium 141 135 - 145 mmol/L Potassium, [...] classification and Diagnosis of Diabetes Diabetes Care 202; 46: S19-S40. Current interpretive data was last [...] CH AST 23 10 - 45 Units/L [facility] Blood 05/04/2024 11:4 5 AM GAMEWELL OPERATOR 05/04/2024 6:56 PM GAMEWELL OPERATOR Raúl Her MD LAB BLOOD ORDERABLES Final Result NELSY [address] Department [place] [address] * Pap and HPV, reflex to HPV Genotypes (02/10/2024 8:48 AM CDT) CLINICAL INFORMATION: [facility] Comment:SCREENING LMP [facility] Comment:UNKNOWN Previous Pap [facility] Comment:NONE GIVEN Prev. Bx [facility] Comment:NONE GIVEN SOURCE: [facility] Comment:Cervix, Endocervix Pap, specimen adequacy [facility] Comment:SATISFACTORY FOR ZAINAB LUATION HPV interp [facility] Comment: Cytology Results: Negative for intraepithelial lesion or malignancy. Atrophic pattern; predominantly parabasal cells COMMENTS [facility] Comment: This Pap test has been evaluated with computer assisted technology. Hat Forming Machine Feeder [facility] Comment: DENAE LIPSCOMB(ASCP) CT Screening location: [place] [address] [place] [address] Comment [facility] Comment: EXPLANATORY NOTE: The Pap is [...] High Risk E6/E7 Not Detected NOT DETECTED [facility] Comment: Not Detected High Risk HPV types (16,18,31,33,35,39,45,51,52, 56,58,59,66,68) were not detected. Other HPV types which cause anogenital lesions may be present. The significance of the other types of HPV in malignant processes has not been established. Methodology: Real Time PCR Thin prep-Endocervica l 02/10/2024 8:48 AM CDT 02/11/2024 2:17 AM CDT Marielena Barone NP LAB CYTOLOGY ORDERABLES Fin al Result [facility] [address] [address] [address] [employer] [place] [address] [place] [address] * MAMMOGRAPHY (03/07/2023) Historical Provider HEALTH MAINTENANCE Final Result * HM COLONOSCOPY (03/07/2018) Historical Provider HEALTH MAINTENANCE Final Result from Last 3 Months or Most Recently Relevant to Health Maintenance Insurance [facility] CHOICE PLUS [facility] [employer] Care Teams 6Th Grade Teacher Relationship Specialty Start Date End Date Raúl Her MD [address] [facility] [address] [place], [place] [phone] PCP - General Family Medicine 08/04/22 Raghavendra Molina MD [address] [facility] [address] [place], [place] [id number] Referring Physician Gastroenterology 02/12/23
== END 2024-07-13 15:32 | disposition home or self-care (01) ==
LOC: ANHIMG 15:33
PROVIDERS: PCP Family Medicine; Visit Provider Family Medicine
DX: Z12.31 Encounter for screening mammogram for malignant neoplasm of breast (principal)
CPT/HCPCS: 77063; 77067